=== PATIENT | male | born 1965 | race Hispanic/Latino ===

== ENCOUNTER 2023-12-05 12:56 | Emergency (ER) | payer SELFPAY ==
[2023-12-05] MEDS ORDERED: Bacitracin 1 PK ONE (13:39)
== END 2023-12-05 13:48 ==
LOC: ERS 12:56 → EEVIPCON 12:56 → ERS 13:48
DX: S00.83XA Contusion of other part of head, initial encounter (principal); W22.8XXA Striking against or struck by other objects, initial encounter
CPT/HCPCS: 99283